=== PATIENT | male | born 1960 | race Caucasian/White ===

== ENCOUNTER 2018-06-17 10:44 | Emergency (ER) | payer BC ==
--- NOTE | 2018-06-17 11:39 | RAD REPORT ---
EXAM DESCRIPTION: RAD - Ankle Right 3 View - 06/17/2018 11:19 am CLINICAL HISTORY: Twisting injury 1 week earlier, persistent ankle pain COMPARISON: None. FINDINGS: An oblique fracture is present through the distal fibula the medially superior to the tibi otalar joint line. No significant distraction or angulation deformity. There is some minimal early ca llus formation identifiable. No other fracture change is identifiable. Minimal midfoot degenerative c hange. Lateral soft tissue swelling is present. IMPRESSION: Distal fibula fracture with no distraction or angulation deformity.
--- NOTE | 2018-06-17 12:00 | ER ---
Nurse's Notes [facility] Name: Drew Horowitz Age: 57 yrs Sex: Male : 1960 Arrival Date: 06/17/2018 Time: 10:49 Bed 18 Private MD: Out, [facility] Diagnosis: Displaced fracture of lateral malleolus of right fibula Presentation: 06/17 10:57 Presenting complaint: Patient states: Twisted right ankle a week ago, reports increased jl7 pain, Swelling noted to right ankle. Transition of care: patient was not received from another setting of care. Onset of symptoms was June 10, 2018. Risk Assessment: Do you want to hurt yourself or someone else? Patient reports no desire to harm self or others. Initial Sepsis Screen: Does the patient meet any 2 criteria? No. Patient's initial sepsis screen is negative. Does the patient have a suspected source of infection? No. Patient's initial sepsis screen is negative. Care prior to arrival: None. 10:57 Method Of Arrival: Ambulatory [facility] 10:57 Acuity: ALPA 4 jl7 Triage Assessment: 10:58 General: Appears in no apparent distress. uncomfortable, Behavior is calm, cooperative, jl7 appropriate for age. Pain: Complains of pain in right ankle Pain currently is 7 out of 10 on a pain scale. Neuro: Level of Consciousness is awake, alert, obeys commands, Oriented to person, place, time, situation. Cardiovascular: Patient's skin is warm and dry. Respiratory: Airway is patent Respiratory effort is even, unlabored, Respiratory pattern is regular, symmetrical. Derm: Skin is pink, warm \\T\\ dry. Musculoskeletal: Swelling present in right ankle. Historical: - Allergies: 10:58 No Known Allergies; jl7 - PMHx: 10:58 Hypertension; jl7 - Immunization history:: Adult Immunizations not up to date. - Social history:: Smoking status: Patient/guardian denies using tobacco, Patient uses alcohol, on a daily basis. "Couple of mixed drinks.". - Ebola Screening: : No symptoms or risks identified at this time. - Family history:: not pertinent. Screenin:02 Abuse screen: Denies threats or abuse. Denies injuries from another. Nutritional bp screening: No deficits noted. Tuberculosis screening: No symptoms or risk factors identified. Fall Risk None identified. Assessment: 11:00 General: Appears in no apparent distress. distressed, comfortable, Behavior is calm, bp cooperative, appropriate for age. Pain: Complains of pain in right ankle. Neuro: Level of Consciousness is awake, alert, obeys commands, Oriented to person, place, time, situation, Appropriate for age. : No signs and/or symptoms were reported regarding the genitourinary system. EENT: No signs and/or symptoms were reported regarding the EENT system. Derm: No deficits noted. Musculoskeletal: Circulation, motion, and sensation intact. Range of motion: intact in all extremities, Swelling present in right ankle. 11:40 Reassessment: PT RETURNED FROM U/S, RESULTS PENDING. VS STABLE ON MONITOR. bp 13:33 Reassessment: PT D/C HOME ON CRUTCHES WITH FAMILY, DX WITH DISTAL FIBULAR FX. bp Vital Signs: 10:58 BP 128 / 77; Pulse 58; Resp 16 S; Pulse Ox 96% on R/A; Weight 103.42 kg (R); Height 6 jl7 ft. 2 in. (187.96 cm) (R); Pain 7/10; 11:41 BP 130 / 81; Pulse 60; Resp 14; Pulse Ox 97% ; bp 13:30 BP 127 / 79; Pulse 61; Resp 16; Pulse Ox 98% ; bp 10:58 Body Mass Index 29.27 (103.42 kg, 187.96 cm) jl7 ED Course: 10:49 Patient arrived in ED. sb2 10:49 Out, [facility] is Private Physician. sb2 10:52 Kris Erickson MD is Attending Physician. alejandro 10:53 Yakov Weaver, MILES is Primary Nurse. bp 10:58 Triage completed. jl7 10:58 Arm band placed on right wrist. jl7 11:02 Patient has correct armband on for positive identification. Bed in low position. Call bp light in reach. Side rails up X2. Adult w/ patient. 11:17 X-ray completed. Portable x-ray completed in exam room. Patient tolerated procedure jb2 well. 11:20 Ankle Right 3 View XRAY In Process Unspecified. EDMS 11:34 US Extremity Venous Unilateral Ltd In Process Unspecified. EDMS 11:58 Parag Echevarria MD is Referral Physician. alejandro 13:09 Crutch training done. Scot wrap to right ankle Orthoglass splint: Posterior long leg jp3 splint applied on right leg. 13:34 No provider procedures requiring assistance completed. Patient did not have IV access bp during this emergency room visit. Administered Medications: 12:20 Drug: Motrin 600 mg Route: PO; bp 13:33 Follow up: Response: No adverse reaction; Pain is decreased bp 12:20 Drug: [place] 10 mg-325 mg 1 tabs Route: PO; bp 13:33 Follow up: Response: No adverse reaction; Pain is decreased bp Outcome: 11:59 Discharge ordered by MD. allen 13:34 Discharged to home with crutches, with family. bp 13:34 Condition: stable 13:34 Discharge instructions given to patient, Instructed on discharge instructions, follow up and referral plans. medication usage, crutch walking, Demonstrated understanding of instructions, follow-up care, medications, crutch walking, splint care, Prescriptions given X 2. 13:35 Patient left the ED. bp Signatures: Dispatcher [employer] EDMS Kris Erickson MD MD cha Buechter, Jesse jb2 Clau Henning, RN RN jl7 Yakov Weaver, MILES RN bp Kami Rose sb2 Quinn Dorsey jp3
--- NOTE | 2018-06-17 12:00 | EDPHYS ---
Physician Documentation [facility] Name: Drew Horowitz Age: 57 yrs Sex: Male : 1960 Arrival Date: 06/17/2018 Time: 10:49 Bed 18 Private MD: Out, [facility] ED Physician Kris Erickson HPI: 06/17 11:07 This 57 yrs old Male presents to ER via Ambulatory with complaints of Ankle alejandro Injury. 11:07 The patient presents with decreased range of motion, pain, that is acute. The alejandro complaints affect the right ankle. Onset: The symptoms/episode began/occurred 3 day(s) ago. Context: resulted from a mis-step by the patient, on a curb. Associated signs and symptoms: Pertinent positives: calf tenderness, swelling. Modifying factors: The symptoms are alleviated by elevation of extremity, the symptoms are aggravated by weight bearing, movement. Severity of symptoms: At their worst the symptoms were moderate, in the emergency department the symptoms are unchanged. The patient has not experienced similar symptoms in the past. Historical: - Allergies: 10:58 No Known Allergies; jl7 - PMHx: 10:58 Hypertension; jl7 - Immunization history:: Adult Immunizations not up to date. - Social history:: Smoking status: Patient/guardian denies using tobacco, Patient uses alcohol, on a daily basis. "Couple of mixed drinks.". - Ebola Screening: : No symptoms or risks identified at this time. - Family history:: not pertinent. ROS: 11:07 Constitutional: Negative for fever, chills, and weight loss, Eyes: Negative for injury, alejandro pain, redness, and discharge, ENT: Negative for injury, pain, and discharge, Neck: Negative for injury, pain, and swelling, Cardiovascular: Negative for chest pain, palpitations, and edema, Respiratory: Negative for shortness of breath, cough, wheezing, and pleuritic chest pain, Abdomen/GI: Negative for abdominal pain, nausea, vomiting, diarrhea, and constipation, Back: Negative for injury and pain, : Negative for injury, bleeding, discharge, and swelling, Skin: Negative for injury, rash, and discoloration, Neuro: Negative for headache, weakness, numbness, tingling, and seizure, Psych: Negative for depression, anxiety, suicide ideation, homicidal ideation, and hallucinations, Allergy/Immunology: Negative for hives, rash, and allergies, Endocrine: Negative for neck swelling, polydipsia, polyuria, polyphagia, and marked weight changes, Hematologic/Lymphatic: Negative for swollen nodes, abnormal bleeding, and unusual bruising. 11:07 MS/extremity: Positive for decreased range of motion, pain, swelling, tenderness, of the lateral aspect of right calf, right ankle, lateral aspect of right foot, right sun, anterior aspect of right ankle and dorsum of right foot. Exam: 11:07 Constitutional: This is a well developed, well nourished patient who is awake, alert, alejandro and in no acute distress. Head/Face: Normocephalic, atraumatic. Eyes: Pupils equal round and reactive to light, extra-ocular motions intact. Lids and lashes normal. Conjunctiva and sclera are non-icteric and not injected. Cornea within normal limits. Periorbital areas with no swelling, redness, or edema. ENT: Nares patent. No nasal discharge, no septal abnormalities noted. Tympanic membranes are normal and external auditory canals are clear. Oropharynx with no redness, swelling, or masses, exudates, or evidence of obstruction, uvula midline. Mucous membranes moist. Neck: Trachea midline, no thyromegaly or masses palpated, and no cervical lymphadenopathy. Supple, full range of motion without nuchal rigidity, or vertebral point tenderness. No Meningismus. Chest/axilla: Normal chest wall appearance and motion. Nontender with no deformity. No lesions are appreciated. Cardiovascular: Regular rate and rhythm with a normal S1 and S2. No gallops, murmurs, or rubs. Normal PMI, no JVD. No pulse deficits. Respiratory: Lungs have equal breath sounds bilaterally, clear to auscultation and percussion. No rales, rhonchi or wheezes noted. No increased work of breathing, no retractions or nasal flaring. Abdomen/GI: Soft, non-tender, with normal bowel sounds. No distension or tympany. No guarding or rebound. No evidence of tenderness throughout. Back: No spinal tenderness. No costovertebral tenderness. Full range of motion. Neuro: Awake and alert, GCS 15, oriented to person, place, time, and situation. Cranial nerves II-XII grossly intact. Motor strength 5/5 in all extremities. Sensory grossly intact. Cerebellar exam normal. Normal gait. Psych: Awake, alert, with orientation to person, place and time. Behavior, mood, and affect are within normal limits. 11:07 Musculoskeletal/extremity: ROM: limited active range of motion due to pain, limited passive range of motion due to pain, Circulation is intact in all extremities. Sensation intact. Compartment Syndrome exam of affected extremity: is normal. Joints: All joints are normal except the right ankle displays limited range of motion, painful range of motion, swelling, tenderness, Weight bearing: can bear weight with assistance only, Tendon exam: specific tendon testing normal through active and passive range of motion DVT Exam: negative Homans' sign noted on exam, no appreciated bluish discoloration, no erythema, no increased warmth, pain, swelling, tenderness. Vital Signs: 10:58 BP 128 / 77; Pulse 58; Resp 16 S; Pulse Ox 96% on R/A; Weight 103.42 kg (R); Height 6 jl7 ft. 2 in. (187.96 cm) (R); Pain 7/10; 11:41 BP 130 / 81; Pulse 60; Resp 14; Pulse Ox 97% ; bp 13:30 BP 127 / 79; Pulse 61; Resp 16; Pulse Ox 98% ; bp 10:58 Body Mass Index 29.27 (103.42 kg, 187.96 cm) jl7 MDM: 10:52 Patient medically screened. [facility] 11:15 Data reviewed: vital signs, nurses notes, radiologic studies, doppler, plain films. [facility] 06/17 10:59 Order name: Ankle Right 3 View XRAY; Complete Time: 11:54 bp 06/17 11:07 Order name: US Extremity Venous Unilateral Ltd [facility] 06/17 11:56 Order name: Crutches; Complete Time: 12:14 [facility] 06/17 11:56 Order name: Splint - Ankle: Posterior; Complete Time: 12:14 [facility] 06/17 11:56 Order name: Ice pack; Complete Time: 12:14 [facility] Administered Medications: 12:20 Drug: Motrin 600 mg Route: PO; bp 13:33 Follow up: Response: No adverse reaction; Pain is decreased bp 12:20 Drug: [place] 10 mg-325 mg 1 tabs Route: PO; bp 13:33 Follow up: Response: No adverse reaction; Pain is decreased bp Disposition: 06/17/18 11:59 Discharged to Home. Impression: Displaced fracture of lateral malleolus of right fibula. - Condition is Stable. - Discharge Instructions: Fibular Ankle Fracture Treated With or Without Immobilization, Adult. - Prescriptions for Ibuprofen 600 mg Oral Tablet - take 1 tablet by ORAL route every 8 hours As needed take with food; 21 tablet. Tylenol- Codeine #3 300-30 mg Oral Tablet - take 2 tablets by ORAL route every 6 hours As needed; 26 tablet. - Medication Reconciliation Form, Thank You Letter, Antibiotic Education, Prescription Opioid Use form. - Follow up: Private Physician; When: 2 - 3 days; Reason: Recheck today's complaints, Re-evaluation by your physician. Follow up: Parag Echevarria MD; When: 2 - 3 days; Reason: Recheck today's complaints, Re-evaluation by your physician. - Problem is new. - Symptoms have improved. Signatures: Dispatcher [employer] EDMS Kris Erickson MD MD cha Leal, Jahala, RN RN jl7 Yakov Weaver RN RN bp Corrections: (The following items were deleted from the chart) 13:35 11:59 06/17/2018 11:59 Discharged to Home. Impression: Displaced fracture of lateral bp malleolus of right fibula. Condition is Stable. Forms are Medication Reconciliation Form, Thank You Letter, Antibiotic Education, Prescription Opioid Use. Follow up: Private Physician; When: 2 - 3 days; Reason: Recheck today's complaints, Re-evaluation by your physician. Follow up: Parag Echevarria; When: 2 - 3 days; Reason: Recheck today's complaints, Re-evaluation by your physician. Problem is new. Symptoms have improved. alejandro
--- NOTE | 2018-06-17 12:13 | RAD REPORT ---
EXAM DESCRIPTION: US - Extremity Venous Uni Ltd - 06/17/2018 11:34 am CLINICAL HISTORY: Trauma to the leg 1 week earlier, persistent pain and swelling COMPARISON: None. TECHNIQUE: Real-time sonographic evaluation of the right lower extremity deep venous systems was per formed. FINDINGS: Normal compressibility, flow augmentation, phasic flow and spontaneous flow are identified in the right lower extremity common femoral, superficial femoral, popliteal and posterior tibial vei ns. No intraluminal filling defects seen. IMPRESSION: No DVT in the right lower extremity.
[2018-06-17] MEDS ORDERED: HYDROCODONE/APAP 10/325 TAB ONE (12:33)
[2018-06-17] MEDS ORDERED: IBUPROFEN 400 MG TAB ONE (12:34)
== END 2018-06-17 13:35 | disposition home or self-care (01) ==
LOC: ER 10:44
PROC: 2W3QX1Z Immobilization of Right Lower Leg using Splint (ICD-10-PCS; principal; 2018-06-17)
DX: S82.61XA Displaced fracture of lateral malleolus of right fibula, initial encounter for closed fracture (principal); X58.XXXA Exposure to other specified factors, initial encounter; Y93.9 Activity, unspecified; Y92.89 Other specified places as the place of occurrence of the external cause; I10 Essential (primary) hypertension
CPT/HCPCS: 93971; 99284